=== PATIENT | female | born 1930 | race Caucasian/White ===

== ENCOUNTER 2017-09-05 17:51 | Emergency (ER) | payer OTHER ==
[~2017-09-05] VITALS: Ht 149.9 cm; Wt 34.0 kg
[2017-09-05] MEDS ORDERED: LEVOTHYROXINE50 MCG PO (18:01)
== END 2017-09-05 22:18 | disposition home or self-care (01) ==
LOC: ER 17:51
DX: R14.3 Flatulence (principal); R14.1 Gas pain; R14.2 Eructation; D64.89 Other specified anemias

== ENCOUNTER 2018-08-13 19:40 | Emergency (ER) | payer OTHER ==
[~2018-08-13] VITALS: Ht 149.9 cm; Wt 31.8 kg
[~2018-08-13 19:40] MED LIST: LEVOTHYROXINE50 MCG PO
[2018-08-13] MEDS ORDERED: BENTYL10 MG/1 ML (19:55)
[2018-08-13] MEDS ORDERED: [UNRECOGNIZED DRUG - OTHER] (19:56)
[2018-08-13] MEDS ORDERED: ABATINEX680 MG (19:57)
[2018-08-13] MEDS ORDERED: JUVEN PACKET1 EAC1 (19:58)
== END 2018-08-14 13:27 | disposition designated cancer center or children's hospital (05) ==
LOC: ER 19:40
DX: K56.690 Other partial intestinal obstruction (principal); R14.0 Abdominal distension (gaseous); Z85.038 Personal history of other malignant neoplasm of large intestine